=== PATIENT | female | born 1975 | race Caucasian/White ===

== ENCOUNTER → 2016-12-24 | Day surgery (SDC) | payer OTHER ==
[~2016-12-24] VITALS: Ht 167.6 cm; Wt 65.6 kg
[~2016-12-24] MED LIST: *MEPERIDINE 25 MG INJ VIAL PERIprocedural Use ONLY ONE; ACETAMINOPHEN 1000 MG/100 ML 100 ML IV ONE; APREPITANT 40 MG CAP ONE; BUPIVACAINE/EPINEPHRINE 0.25% 50 ML VIAL ONE; CHLORHEXIDINE GLUCONATE 2 % 1 PACK (2 CLOTHS) TOPICAL PRN; DEXAMETHASONE SOD PHOS 4 MG/ML VIAL IV ONE; DO NOT ADM ANY ANTICOAGULANT DRUGS PRN; GLYCOPYRROLATE 1 MG/5 ML SYRINGE IV PUSH ONE; INSULIN HUMAN REGULAR 1,000 UNITS/10 ML VIAL SQ PRN; KETOROLAC TROMETHAMINE 30 MG/ML (IVP) VIAL IV PUSH ONE; KETOROLAC TROMETHAMINE 30 MG/ML (IVP) VIAL IV PUSH SCH; LACTATED RINGER'S 1000 ML IV PRN; LIDOCAINE HCL 1% PF 5 ML SYRINGE OTHER ONE; METOPROLOL TARTRATE 25 MG TAB PO PRN; MIDAZOLAM HCL 2 MG/2 ML VIAL IV ONE; MORPHINE SULFATE 4 MG/ML INJ IV ONE; NEOSTIGMINE 3 MG/3 ML SYR IV ONE; ONDANSETRON HCL 4 MG/2 ML VIAL IV PUSH ONE; ONDANSETRON HCL 4 MG/2 ML VIAL IV PUSH PRN; ONDANSETRON HCL 4 MG/2 ML VIAL ONE; OXYC-360 PO; POVIDONE IODINE 5% (ANTISEPSIS KIT) 4 APPLICATIONS EACH NARE PRN; PREN0.01 PO; PROPOFOL 200 MG/20 ML AMP IV ONE; ROCURONIUM INJ 50 MG/5 ML SYRINGE IV PUSH ONE; SODIUM CHLORID 0.9% 500 ML IV PRN; oxyCODONE/ACETAMINOPHEN 5 MG/325 MG TAB PO PRN
[2016-12-24 10:45] VITALS: BP 93/58; PULSE 68; RESP 16; TEMP 96.6; O2SAT 97
--- NOTE | 2016-12-25 10:05 | MP ---
cc: LINDSAY RIDDLE M.D. DATE OF SURGERY 12/24/2016 PREOPERATIVE DIAGNOSIS Dyspareunia POSTOPERATIVE DIAGNOSIS Dyspareunia along with pelvic adhesive disease and a paratubal cyst. PROCEDURE PERFORMED Diagnostic laparoscopy with lysis of adhesions and a left salpingectomy and paratubal cystectomy. BLOOD LOSS None COMPLICATIONS None ANESTHESIA General endotracheal FINDINGS AT SURGERY Some filmy adhesions of the omentum over the right tube to the right sidewall, a left paratubal cyst about 2 cm and a left dilated tube probably from a prior tubal ligation. PROCEDURE IN DETAIL After proper consents were obtained, the patient was taken to the operating room where general endotracheal anesthesia was applied. She was then placed in dorsolithotomy position, sterilely prepped and draped and a Mejia catheter was placed. At this time, an open bivalve speculum was placed in the vaginal vault to visualize the anterior lip of the cervix which was grasped with a single-tooth tenaculum. The uterus sounded to about 8 cm. We dilated the cervix with Hegar dilators up to about #10 and Steri-Stripped it to the tenaculum for uterine manipulation. I removed the speculum, changed gloves, went to the abdomen and placed a lidocaine with epinephrine solution in the umbilicus. I placed a 5-mm incision in the umbilicus and I placed a 5-mm trocar under direct visualization into the abdominopelvic cavity easily. We insufflated to an adequate level of pneumoperitoneum. Inspection revealed the right pelvic sidewall with a thin filmy omental adhesion encompassing the right tube and a left paratubal cyst and a left dilated distal portion of the fallopian tube. At this time, I placed two 5 mm incisions in the bilateral lower quadrant midaxillary line followed by two 5 mm trocars under direct visualization. I used the harmonic scalpel and took down the adhesions of the omentum easily. I then removed the paratubal cyst without difficulty. I then made the decision to remove the left tube just due to its dilated state and the fact that I could not find any other pathology to account for her dyspareunia. So we removed the left tube without difficulty using the harmonic scalpel. I was able to remove all of that pathology up through the 5-mm trocar site. Inspection of the cul-de-sac revealed it to be very normal. No sign of endometriosis. No scarring, as well as the anterior surface of the uterus and bladder. The rest of her abdomen and pelvis was all within normal limits. At this time, I went ahead and removed all the instruments, desufflated the abdomen, closed the incisions using a 4-0 Monocryl in the subcu fashion. I removed the vaginal instruments. Counts were correct and the patient was stable to the recovery room. MD VENICE Caraballo/DJL /9:47 AM /10:00 AM
== END | disposition home or self-care (01) ==
LOC: HSDC 06:04
PROVIDERS: ATTEND Obstetrics & Gynecology
DX: N94.10 Unspecified dyspareunia (principal); N83.8 Other noninflammatory disorders of ovary, fallopian tube and broad ligament; N73.6 Female pelvic peritoneal adhesions (postinfective)
CPT/HCPCS: 00840; 58661; 58662; 84703; 88305; J0131; J1100; J1885; J2175; J2250; J2270; J2405; J2710; J3010; J7120; J8501